=== PATIENT | female | born 1995 | race American Indian/Alaskan Native ===

== ENCOUNTER 2017-09-12 11:45 | Emergency (ER) | payer SELFPAY ==
[2017-09-12] MEDS ORDERED: TYLENOL ONE (12:14)
[2017-09-12] MEDS ORDERED: TYLENOL PO ONE (12:21)
[2017-09-12] MEDS ORDERED: NACL 0.9% 1000 ML IV ONE (16:23)
[2017-09-12] MEDS ORDERED: ZOFRAN IV ONE (16:29)
[2017-09-12] MEDS ORDERED: TORADOL IV ONE (16:29)
--- NOTE | 2017-09-12 16:30 | Emergency Department Report ---
Blank Doc - Documentation Documentation: 22-year-old female presents to the hospital complaints of fever, nausea, vomiting and diarrhea 3 days. I really has resolved since onset but now persistent vomiting with 2 episodes reported today. Patient complains of generalized abdominal pain and generalized weakness. She received Tylenol prior to my evaluation was initially feeling better but now feels like she's developed a fever again. She denies sore throat, shortness of breath, dysuria, recent travel, sick contacts, or cough. On exam patient has dry mucous membranes She has significant right upper quadrant tenderness on focused exam Sepsis protocol orders given abnormal vital signs including CMP, and lipase Repeat vital signs requested Ultrasound ordered She was treated with IV fluids as per sepsis protocol, zofran, toradol Midlevel to evaluate
[2017-09-12 16:56] LABS: Basophils # (Auto) 0.1 K/mm3 (0.0-0.1); Basophils % (Auto) 0.3 % (0.0-1.8); Eosinophils % (Auto) 0.2 % (0.0-4.3); Hematocrit 39.1 % (30.3-42.9); Hemoglobin 12.7 gm/dl (10.1-14.3); Lymphocytes # (Auto) 1.4 K/mm3 (1.2-5.4); Lymphocytes % (Auto) 8.3 % (13.4-35.0); Mean Corpuscular HGB Conc 32 % (30-34); Mean Corpuscular Hemoglobin 28 pg (28-32); Mean Corpuscular Volume 87 fl (79-97); Monocytes # (Auto) 1.9 K/mm3 (0.0-0.8); Monocytes % (Auto) 11.1 % (0.0-7.3); Platelet Count 301 K/mm3 (140-440); Red Blood Count 4.49 M/mm3 (3.65-5.03); Red Cell Distribution Width 14.7 % (13.2-15.2)
[2017-09-12 17:08] LABS: Alanine Aminotransferase 7 units/L (7-56); Albumin 4.2 g/dL (3.9-5); BUN/Creatinine Ratio 13; Blood Urea Nitrogen 9 mg/dL (7-17); Calcium 9.6 mg/dL (8.4-10.2); Hemolysis Index 24
--- NOTE | 2017-09-12 17:54 | Emergency Department Report ---
ED Fever HPI - General Chief Complaint: Fever Stated Complaint: CHEST PAIN Time Seen by Provider: 09/12/17 16:08 Source: patient Exam Limitations: no limitations - History of Present Illness Initial Comments: This is a 22-year-old -[place] female who presents with a fever and nausea and vomiting for 3 days. Patient has no past medical history. Patient states she had one episode of diarrhea which has now resolved. She is still having nausea with vomiting today. Patient states she is having abdominal pain and low back pain that is sharp and intermittent. Currently pain is 7 out of 10 on pain scale. Patient denies sick contacts and recent travel. Patient denies taking medication at home but received Tylenol in triage and feeling a little bit better. Patient states she did not feel feverish but told she had a fever on evaluation in triage. Timing/Duration: intermittent, other (3 days) Fever Severity/Quality: greater than 102 F Fever Therapy [employer]: none Associated Symptoms: abdominal pain, nausea/vomiting. denies: chest pain, confusion, cough, diaphoresis, headache, muscle aches, rash, shortness of breath , sore throat, stiff neck, syncope, weakness ED Review of Systems ROS: Stated complaint: CHEST PAIN Other details as noted in HPI Constitutional: fever. denies: chills Respiratory: denies: cough, shortness of breath, wheezing Cardiovascular: denies: chest pain, palpitations Gastrointestinal: abdominal pain (upper abdominal pain), nausea, vomiting. denies: diarrhea, constipation, hematemesis, melena, hematochezia Genitourinary: denies: urgency, dysuria, discharge Neurological: denies: headache, weakness, numbness, paresthesias Psychiatric: denies: anxiety, depression ED Past Medical Hx - Past Medical History Previous Medical History?: No - Surgical History Past Surgical History?: No - Medications Home Medications: Home Medications Medication Instructions Recorded Confirmed Last Taken Type Ibuprofen [Motrin 800 MG tab] 800 mg PO Q8HR PRN #15 tablet 09/12/17 Unknown Rx Ondansetron [Zofran Odt] 4 mg PO TID PRN #15 tab.rapdis 09/12/17 Unknown Rx Sulfamethoxazole/Trimethoprim 1 each PO BID 7 Days #14 tablet 09/12/17 Unknown Rx [Bactrim DS TAB] ED Physical Exam - General Limitations: No Limitations General appearance: alert, in no apparent distress - Respiratory Respiratory exam: Present: normal lung sounds bilaterally. Absent: respiratory distress - Cardiovascular Cardiovascular Exam: Present: regular rate, normal rhythm. Absent: systolic murmur, diastolic murmur, rubs, gallop - GI/Abdominal GI/Abdominal exam: Present: soft, tenderness (right upper quadrant and left upper quadrant tenderness on deep palpation), normal bowel sounds. Absent: distended, guarding, rebound, rigid, organomegaly, mass - Back Exam Back exam: Present: normal inspection, full ROM. Absent: CVA tenderness (R), CVA tenderness (L), muscle spasm, paraspinal tenderness, vertebral tenderness, rash noted - Neurological Exam Neurological exam: Present: alert, oriented X3 - Psychiatric Psychiatric exam: Present: normal affect, normal mood - Skin Skin exam: Present: warm, dry, intact, normal color. Absent: rash ED Course Vital Signs 09/12/17 09/12/17 09/12/17 12:17 16:02 17:19 Temperature 103.1 F H Pulse Rate 111 H Respiratory 20 18 18 Rate Blood Pressure 121/52 Blood Pressure [Left] O2 Sat by Pulse 98 Oximetry 09/12/17 18:53 Temperature 99.1 F Pulse Rate 81 Respiratory 18 Rate Blood Pressure Blood Pressure 129/89 [Left] O2 Sat by Pulse 100 Oximetry ED Medical Decision Making - Lab Data Result diagrams: 09/12/17 16:34 09/12/17 16:34 Lab Results 09/12/17 09/12/17 09/12/17 Range/Units 16:34 16:34 16:34 WBC 17.1 H (4.5-11.0) K/mm3 RBC 4.49 (3.65-5.03) M/mm3 Hgb 12.7 (10.1-14.3) gm/dl Hct 39.1 (30.3-42.9) % MCV 87 (79-97) fl MCH 28 (28-32) pg MCHC 32 (30-34) % RDW 14.7 (13.2-15.2) % Plt Count 301 (140-440) K/mm3 Lymph % (Auto) 8.3 L (13.4-35.0) % [place] % (Auto) 11.1 H (0.0-7.3) % Eos % (Auto) 0.2 (0.0-4.3) % Baso % (Auto) 0.3 (0.0-1.8) % Lymph # 1.4 (1.2-5.4) K/mm3 [place] # 1.9 H (0.0-0.8) K/mm3 Eos # 0.0 (0.0-0.4) K/mm3 Baso # 0.1 (0.0-0.1) K/mm3 Seg Neutrophils % 80.1 H (40.0-70.0) % Seg Neutrophils # 13.7 H (1.8-7.7) K/mm3 Sodium 137 (137-145) mmol/L Potassium 3.8 (3.6-5.0) mmol/L Chloride 97.7 L (98-107) mmol/L Carbon Dioxide 24 (22-30) mmol/L Anion Gap 19 mmol/L BUN 9 (7-17) mg/dL Creatinine 0.7 (0.7-1.2) mg/dL Estimated GFR > 60 ml/min BUN/Creatinine Ratio 13 % Glucose 103 H (65-100) mg/dL Lactic Acid 1.50 (0.7-2.0) mmol/L Calcium 9.6 (8.4-10.2) mg/dL Total Bilirubin 0.50 (0.1-1.2) mg/dL AST 13 (5-40) units/L ALT 7 (7-56) units/L Alkaline Phosphatase 64 (35-129) units/L Total Protein 7.0 (6.3-8.2) g/dL Albumin 4.2 (3.9-5) g/dL Albumin/Globulin Ratio 1.5 % Lipase (13-60) units/L HCG, Qual (Negative) Urine Color (Yellow) Urine Turbidity (Clear) Urine pH (5.0-7.0) Ur Specific [place] (1.003-1.030) Urine Protein (Negative) mg/dL Urine Glucose (UA) (Negative) mg/dL Urine Ketones (Negative) mg/dL Urine Blood (Negative) Urine Nitrite (Negative) Urine Bilirubin (Negative) Urine Urobilinogen (<2.0) mg/dL Ur Leukocyte Esterase (Negative) Urine WBC (Auto) (0.0-6.0) /HPF Urine RBC (Auto) (0.0-6.0) /HPF U Epithel Cells (Auto) (0-13.0) /HPF Urine Mucus /HPF 09/12/17 09/12/17 09/12/17 Range/Units 16:34 16:34 18:14 WBC (4.5-11.0) K/mm3 RBC (3.65-5.03) M/mm3 Hgb (10.1-14.3) gm/dl Hct (30.3-42.9) % MCV (79-97) fl MCH (28-32) pg MCHC (30-34) % RDW (13.2-15.2) % Plt Count (140-440) K/mm3 Lymph % (Auto) (13.4-35.0) % [place] % (Auto) (0.0-7.3) % Eos % (Auto) (0.0-4.3) % Baso % (Auto) (0.0-1.8) % Lymph # (1.2-5.4) K/mm3 [place] # (0.0-0.8) K/mm3 Eos # (0.0-0.4) K/mm3 Baso # (0.0-0.1) K/mm3 Seg Neutrophils % (40.0-70.0) % Seg Neutrophils # (1.8-7.7) K/mm3 Sodium (137-145) mmol/L Potassium (3.6-5.0) mmol/L Chloride (98-107) mmol/L Carbon Dioxide (22-30) mmol/L Anion Gap mmol/L BUN (7-17) mg/dL Creatinine (0.7-1.2) mg/dL Estimated GFR ml/min BUN/Creatinine Ratio % Glucose (65-100) mg/dL Lactic Acid (0.7-2.0) mmol/L Calcium (8.4-10.2) mg/dL Total Bilirubin (0.1-1.2) mg/dL AST (5-40) units/L ALT (7-56) units/L Alkaline Phosphatase (35-129) units/L Total Protein (6.3-8.2) g/dL Albumin (3.9-5) g/dL Albumin/Globulin Ratio % Lipase 10 L (13-60) units/L HCG, Qual Negative (Negative) Urine Color Yellow (Yellow) Urine Turbidity Clear (Clear) Urine pH 6.0 (5.0-7.0) Ur Specific [place] 1.021 (1.003-1.030) Urine Protein 100 mg/dl (Negative) mg/dL Urine Glucose (UA) Neg (Negative) mg/dL Urine Ketones 80 (Negative) mg/dL Urine Blood Neg (Negative) Urine Nitrite Pos (Negative) Urine Bilirubin Neg (Negative) Urine Urobilinogen 2.0 (<2.0) mg/dL Ur Leukocyte Esterase Lg (Negative) Urine WBC (Auto) 124.0 H (0.0-6.0) /HPF Urine RBC (Auto) 4.0 (0.0-6.0) /HPF U Epithel Cells (Auto) 2.0 (0-13.0) /HPF Urine Mucus 1+ /HPF 09/12/17 09/12/17 Range/Units 20:20 22:05 WBC (4.5-11.0) K/mm3 RBC (3.65-5.03) M/mm3 Hgb (10.1-14.3) gm/dl Hct (30.3-42.9) % MCV (79-97) fl MCH (28-32) pg MCHC (30-34) % RDW (13.2-15.2) % Plt Count (140-440) K/mm3 Lymph % (Auto) (13.4-35.0) % [place] % (Auto) (0.0-7.3) % Eos % (Auto) (0.0-4.3) % Baso % (Auto) (0.0-1.8) % Lymph # (1.2-5.4) K/mm3 [place] # (0.0-0.8) K/mm3 Eos # (0.0-0.4) K/mm3 Baso # (0.0-0.1) K/mm3 Seg Neutrophils % (40.0-70.0) % Seg Neutrophils # (1.8-7.7) K/mm3 Sodium (137-145) mmol/L Potassium (3.6-5.0) mmol/L Chloride (98-107) mmol/L Carbon Dioxide (22-30) mmol/L Anion Gap mmol/L BUN (7-17) mg/dL Creatinine (0.7-1.2) mg/dL Estimated GFR ml/min BUN/Creatinine Ratio % Glucose (65-100) mg/dL Lactic Acid 2.20 H* 1.70 (0.7-2.0) mmol/L Calcium (8.4-10.2) mg/dL Total Bilirubin (0.1-1.2) mg/dL AST (5-40) units/L ALT (7-56) units/L Alkaline Phosphatase (35-129) units/L Total Protein (6.3-8.2) g/dL Albumin (3.9-5) g/dL Albumin/Globulin Ratio % Lipase (13-60) units/L HCG, Qual (Negative) Urine Color (Yellow) Urine Turbidity (Clear) Urine pH (5.0-7.0) Ur Specific [place] (1.003-1.030) Urine Protein (Negative) mg/dL Urine Glucose (UA) (Negative) mg/dL Urine Ketones (Negative) mg/dL Urine Blood (Negative) Urine Nitrite (Negative) Urine Bilirubin (Negative) Urine Urobilinogen (<2.0) mg/dL Ur Leukocyte Esterase (Negative) Urine WBC (Auto) (0.0-6.0) /HPF Urine RBC (Auto) (0.0-6.0) /HPF U Epithel Cells (Auto) (0-13.0) /HPF Urine Mucus /HPF - Radiology Data Radiology results: report reviewed PROCEDURE: US ABDOMEN COMPLETE TECHNIQUE: Real-time sonography in multiple planes of the abdomen was performed with image documentation. CPT 60976 HISTORY: ruq pain, fever, vomit COMPARISON: No prior studies are available for comparison. FINDINGS: Examination the right upper quadrant shows normal echogenicity of the liver. No masses are seen. The intrahepatic ducts are not not distended. No ascites is visualized. Gallbladder is normal in appearance. No evidence of gallstones or gallbladder wall thickening. Common bile duct is normal caliber measuring 3.2 millimeters. Echogenicity the renal cortex of both kidneys appears normal. No masses or calculi are seen. There is no hydronephrosis. Right kidney measures 11.0 centimeters greatest length the left kidney 10.4 centimeters greatest length. Spleen is normal in size and appearance. The pancreas showed no focal abnormality. Proximal abdominal aorta appear normal. Mid and distal abdominal aorta were not studied. IMPRESSION: Negative exam. No acute or focal abnormalities are identified.. - Medical Decision Making This is a 22 y.o. female presents with fever, nausea, and vomiting for 3 days. Patient was examined by me and screening by Dr. Pickett. Patient given Tylenol, Toradol, Zofran, and normal saline bolus. Labs obtained and ultrasound of abdomen. Negative hcg qal, elevated WBC, normal lipase and lactic acid. Ultrasound of abdomen dictated by radiologist, Negative exam. No acute or focal abnormalities are identified. Urinalysis positive for nitrates, negative blood , elevated WBCs, large leukocyte. Patient given Bactrim DS by mouth once in ER. Second lactate acid 2.5. Consulted with Dr. Nunez, advised to give second liter of normal saline and repeat lactic acid. Repeat lactate after was 1.7. Patient reports she is feeling better. Patient will be treated for pyelonephritis with Bactrim and ibuprofen for pain. Patient informed of results. Plan discussed with patient to discharge home and treat outpatient. Patient discharged home in stable condition. Follow up with PCP and dentist in 2 -3 days. Critical care attestation.: If time is entered above; I have spent that time in minutes in the direct care of this critically ill patient, excluding procedure time. ED Disposition Clinical Impression: Pyelonephritis Abdominal pain Qualifiers: Abdominal location: upper abdomen, unspecified Qualified Code(s): R10.10 - Upper abdominal pain, unspecified Nausea and vomiting Qualifiers: Vomiting type: unspecified Vomiting Intractability: non-intractable Qualified Code(s): R11.2 - Nausea with vomiting, unspecified Disposition: DC-01 TO HOME OR SELFCARE Is pt being admited?: No Does the pt Need Aspirin: No Condition: Stable Instructions: Urinary Tract Infection in Women (ED) Additional Instructions: Complete full course of antibiotics as prescribed. Avoid drinking alcohol while taking antibiotics and for up to 24 hours after completion. Increased fluid intake to 1-2 L of water to help flush the kidneys. Follow-up with primary care provider in 2-3 days. Prescriptions: Ibuprofen [Motrin 800 MG tab] 800 mg PO Q8HR PRN #15 tablet PRN Reason: Pain , Severe (7-10) Ondansetron [Zofran Odt] 4 mg PO TID PRN #15 tab.rapdis PRN Reason: Nausea And Vomiting Sulfamethoxazole/Trimethoprim [Bactrim DS TAB] 1 each PO BID 7 Days #14 tablet Referrals: [facility] [Outside] - 3-5 Days [facility] [Outside] - 3-5 Days [facility] [Outside] - 3-5 Days Forms: Work/School Release Form(ED) Time of Disposition: 20:39 Print Language: L[place]
[2017-09-12 18:54] VITALS: BP 129/89
--- NOTE | 2017-09-12 19:11 | Ultrasound Report ---
FINAL REPORT PROCEDURE: US ABDOMEN COMPLETE TECHNIQUE: Real-time sonography in multiple planes of the abdomen was performed with image documentation. CPT 28331 HISTORY: ruq pain, fever, vomit COMPARISON: No prior studies are available for comparison. FINDINGS: Examination the right upper quadrant shows normal echogenicity of the liver. No masses are seen. The intrahepatic ducts are not not distended. No ascites is visualized. Gallbladder is normal in appearance. No evidence of gallstones or gallbladder wall thickening. Common bile duct is normal caliber measuring 3.2 millimeters. Echogenicity the renal cortex of both kidneys appears normal. No masses or calculi are seen. There is no hydronephrosis. Right kidney measures 11.0 centimeters greatest length the left kidney 10.4 centimeters greatest length. Spleen is normal in size and appearance. The pancreas showed no focal abnormality. Proximal abdominal aorta appear normal. Mid and distal abdominal aorta were not studied. IMPRESSION: Negative exam. No acute or focal abnormalities are identified..
[2017-09-12 19:58] LABS: Bilirubin,Urine NEG (Negative); Blood,Urine NEG (Negative); Color,Urine Yellow (Yellow); Mucus,Urine 1+ /HPF
[2017-09-12] MEDS ORDERED: BACTRIM DS PO ONE (20:39)
[2017-09-12] MEDS ORDERED: NACL 0.9% 1000 ML 1,000 ML IV ONE (21:08)
== END 2017-09-12 22:49 | disposition home or self-care (01) ==
LOC: ED 11:45
DX: N12 Tubulo-interstitial nephritis, not specified as acute or chronic (principal)
CPT/HCPCS: 36415; 76700; 80053; 81001; 82140; 83690; 84703; 85025; 87040; 93005; 93010; 96361; 96374; 96375; 99284; J1885; J2405; J7030